=== PATIENT | female | born 1965 | race Caucasian/White ===

== ENCOUNTER 2020-08-24 13:10 | Outpatient (CLI) | payer MEDICAID ==
[~2020-08-24 13:10] MED LIST: FLUTICASONE PRO16 G1 NASAL; INHALER; PATADAY2.5 ML OP; PSEUDOEPHEDRINE60 MG PO
[2020-08-24 13:54] VITALS: BP 122/78
--- NOTE | 2020-08-24 16:05 | General Progress Note ---
Subjective ROS Limited/Unobtainable: Yes Allergies: Coded Allergies: PENICILLINS (Verified Allergy, Severe, Rash, 07/14/20) BREATHING ISSUE CEPHALEXIN (Verified Allergy, Intermediate, 07/14/20) SWOLLEN SULFAMETHOXAZOLE (Verified Allergy, Intermediate, 07/14/20) SWOLLEN TRIMETHOPRIM (Verified Allergy, Intermediate, 07/14/20) SWOLLEN Objective Last 24 Hour Vital Signs Date Time Temp Pulse Resp B/P (MAP) Pulse Ox O2 Delivery O2 Flow Rate FiO2 08/24/20 13:54 97.7 73 16 122/78 98 General Appearance: alert EENT: normal ENT inspection Neck: supple Cardiovascular: normal rate Respiratory/Chest: lungs clear Abdomen: normal bowel sounds, non tender, soft Extremities: non-tender Assessment/Plan Assessment/Plan: s/p EGD and colonoscopy HP positive treat with Quatro theraphy repeat colon in 5 years Rio Lee MD Aug 24, 2020 16:05
== END 2020-08-24 15:10 | disposition home or self-care (01) ==
LOC: PAN 13:10
DX: Z00.01 Encounter for general adult medical examination with abnormal findings (principal); B96.81 Helicobacter pylori [H. pylori] as the cause of diseases classified elsewhere; Z88.0 Allergy status to penicillin; Z88.2 Allergy status to sulfonamides; Z88.8 Allergy status to other drugs, medicaments and biological substances
CPT/HCPCS: 99212

== ENCOUNTER 2020-11-27 13:00 | Outpatient (CLI) | payer MEDICAID ==
[2020-11-28 08:20] VITALS: BP 110/69
--- NOTE | 2020-11-30 14:43 | General Progress Note ---
Subjective ROS Limited/Unobtainable: Yes Allergies: Coded Allergies: PENICILLINS (Verified Allergy, Severe, Rash, 07/14/20) BREATHING ISSUE CEPHALEXIN (Verified Allergy, Intermediate, 07/14/20) SWOLLEN SULFAMETHOXAZOLE (Verified Allergy, Intermediate, 07/14/20) SWOLLEN TRIMETHOPRIM (Verified Allergy, Intermediate, 07/14/20) SWOLLEN Objective General Appearance: alert EENT: PERRL/EOMI Neck: supple Cardiovascular: normal rate Respiratory/Chest: decreased breath sounds Abdomen: normal bowel sounds, non tender, soft Extremities: non-tender Assessment/Plan Assessment/Plan: Assessment/Plan Assessment/Plan: s/p EGD and colonoscopy HP positive s/p Quatro theraphy ordered BT repeat colon in 5 years Rio Lee MD Nov 30, 2020 14:43
== END 2020-11-27 15:00 | disposition home or self-care (01) ==
LOC: PAN 13:00
DX: R10.9 Unspecified abdominal pain (principal); B96.81 Helicobacter pylori [H. pylori] as the cause of diseases classified elsewhere; Z88.2 Allergy status to sulfonamides
CPT/HCPCS: 99212